=== PATIENT | male | born 1940 | race Caucasian/White ===

== ENCOUNTER → 2016-10-06 | Outpatient (CLI) | payer MEDICARE, OTHER ==
[~2016-10-06] MED LIST: CALTRATE 600+D PO; CIPRO PO; CIPRO250 MG PO; CYCLOBENZAPRINE5 MG PO; DISCONTINUED MED; FINACEA PLUS K1 EACH; FISH OIL SOFTGE1 CA1; FLOMAX0.4 M1 PO; LIPITOR20 MG PO; LODINE PO; LODINE400 M1; LODINE400 MG PO; LORTAB 7.5-5001 TAB PO; LOTREL 10-20 MG1 CAP PO; LOTREL 10/20 MG1 CAP PO; MULTI-DAY VITAM1 TAB; MULTIVITAMINS1 EAC3 PO; NEXIUM PO; NEXIUM20 MG PO; PERCOCET7.5 PO; POLYGESIC 5/5001 CAP PO; PRAVASTATIN SOD20 MG PO; ROBAXIN 750750 MG; ROBAXIN PO; TOPROL XL50 MG PO; VIBRAMYCIN100 M1; VITAMIN D400 UNI1; ZESTORETIC 10-1 EAC1 PO; ZOCOR PO; [UNRECOGNIZED DRUG - OTHER]; [UNRECOGNIZED DRUG - OTHER] PO
--- NOTE | ~2016-10-06 | US85 ---
[facility] A Service [facility] RADIOLOGY TEXT RESULTS PATIENT: TOMI WILSON LOCATION: CNIV : 41 UNIT #: [id number] AGE: [address]: Chris Khoury MD SEX: M ORDER DR: [id number] [facility]. [place], [place] [address] [id number] O MR#: [id number] Acc #: [id number] NAME: TOMI WILSON : 1940 SEX: M STUDY DATE/TIME: 10/06/2016 13:39 UNIT: CNIV ROOM: STUDY DESCRIPTION: [facility] Attending Physician: Chris Khoury Jr., M.D. Referring Physician: Chris Khoury Jr., M.D. Ordering Physician: Chris Khoury Jr., M.D. Primary Care Physician: Chris Khoury Jr., M.D. MEDICAL IMAGING REPORT This report is preliminary unless electronic signature is present DATE OF EXAM 10/06/2016 REASON FOR EXAM Left leg swelling. EXAM Left lower extremity venous Doppler. FINDINGS The left common femoral vein, femoral vein, popliteal vein, tibial veins demonstrate patency and compressibility. There is phasic and spontaneous flow with respiration and augmentation. Proximal and distal greater saphenous veins are patent and compressible. IMPRESSION No evidence of left lower extremity deep vein thrombosis. Dictated by... Zenaida Joel M.D. THIS IS AN ELECTRONICALLY VERIFIED REPORT Zenaida Joel M.D. at 10/07/2016 9:26 AM SATHYA/elsa TD: 10/06/2016 21:24 JOB #: [id number] MEDICAL IMAGING REPORT [facility] A Service [facility] RADIOLOGY TEXT RESULTS PATIENT: TOMI WILSON LOCATION: CNIV : 41 UNIT #: [id number] AGE: [address]: Chris Khoury MD SEX: M ORDER DR: COPY
== END | disposition home or self-care (01) ==
LOC: CNIV 12:49
DX: I87.2 Venous insufficiency (chronic) (peripheral) (principal); M79.89 Other specified soft tissue disorders
CPT/HCPCS: 93971

== ENCOUNTER → 2016-10-20 | Outpatient (CLI) | payer MEDICARE, OTHER | END | disposition home or self-care (01) | LOC: CLAB 10:51 | DX: C61 Malignant neoplasm of prostate (principal) | CPT/HCPCS: 36415; 84153 ==

== ENCOUNTER → 2017-04-20 | Day surgery (SDC) | payer MEDICARE, OTHER ==
--- NOTE | ~2017-04-20 | OR ---
Unit #: [id number] #: [id number] Patient: FEDE WILSON [id number] [place], [place] [address] [id number] O MR#: [id number] NAME: FEDE WILSON ROOM: Date of Procedure: 04/20/2017 Admission Date: 04/20/2017 Surgeon: Fede Meyers Jr., M.D. : 1940 Attending Physician: Fede Meyers Jr., M.D. OPERATIVE REPORT INDICATIONS FOR PROCEDURE The patient is a 77-year-old white male with a known past history for colon polyps. He has had no colonoscopy for over 5 to 10 years and also has a strong family history of colon cancer. He is brought in this time at his request for screening colonoscopy to rule out any recurrent polyps or occult malignancy, understands the procedure including the risks, including that of bleeding and perforation, and consents. PREOPERATIVE DIAGNOSIS Desired screening colonoscopy, rule out pathology. POSTOPERATIVE DIAGNOSES No evidence of any polyps. The patient did have some diverticulosis of left colon, otherwise no other abnormalities in the distal ileum. ANESTHESIA MAC anesthesia. PROCEDURE PERFORMED Flexible fiberoptic colonoscopy to the distal ileum. DESCRIPTION OF PROCEDURE The patient was positioned in [place] position with left side down. After being given MAC anesthesia, digital rectal examination was performed, which revealed no palpable mass or tenderness. No blood or stool within the rectal ampulla. The prostate was fairly normal by palpation, although he has had a known past history of prostate cancer. The colonoscope was advanced up in the rectum and retroflexed down to the area of the anorectal region. There was no evidence of any significant internal hemorrhoids. The scope was then straightened and advanced up in the rectosigmoid, in the sigmoid and descending colon areas, around the splenic flexure and the transverse colon, around hepatic flexure and ascending colon, down to the area of the cecum. The light from the tip of the scope could be seen transilluminating through right lower quadrant abdominal wall area. The scope was advanced up the distal ileum approximately 5 to 10 inches. There was no evidence of any ileitis or inflammatory bowel disease. The scope was slowly removed. There were no tumors, polyps, cancer, or AVMs. No evidence of any colitis or acute diverticulitis. The caliber of the colon appeared normal throughout. Except for noting some diverticulosis of the left colon, there were no other specific abnormalities. The scope was removed. The patient tolerated the procedure well and discharged in satisfactory condition. Unit #: [id number] #: [id number] Patient: FEDE WILSON Dictated by... Fede Meyers Jr., MNisha. EDGARD/mio TD: 04/20/2017 15:16 JOB #: [id number] OPERATIVE REPORT Page 1 of 1 X Fede Meyers MD X PROCEDURE OPERATIVE NOTE
== END | disposition home or self-care (01) ==
LOC: COPS 03-30 12:30
DX: Z12.11 Encounter for screening for malignant neoplasm of colon (principal); K57.30 Diverticulosis of large intestine without perforation or abscess without bleeding; K21.9 Gastro-esophageal reflux disease without esophagitis; M19.90 Unspecified osteoarthritis, unspecified site; I10 Essential (primary) hypertension; F17.200 Nicotine dependence, unspecified, uncomplicated; Z87.442 Personal history of urinary calculi; Z85.46 Personal history of malignant neoplasm of prostate; Z86.010 Personal history of colon polyps; Z80.0 Family history of malignant neoplasm of digestive organs; Z91.048 Other nonmedicinal substance allergy status; Z79.899 Other long term (current) drug therapy; Z98.890 Other specified postprocedural states